=== PATIENT | female | born 1995 | race Caucasian/White ===

== ENCOUNTER 2020-01-11 10:38 | Inpatient (IN) ==
[2020-01-11] MEDS ORDERED: OXYTOCIN/DEXTROSE 5%-WATER 30 UNITS/500 ML BAG IV ONE (12:04)
[2020-01-11] MEDS ORDERED: ONDANSETRON 4 MG TAB.RAPDIS PO PRN (12:04)
[2020-01-11] MEDS: RINGER'S SOLUTION,LACTATED 1,000 ML IV ONE (12:56)
[2020-01-11] MEDS: valACYclovir HCL 500 MG TABLET PO SCH (13:00)
--- NOTE | 2020-01-11 14:48 | HP ---
Chief Complaint - Chief Complaint Date of Service: 01/11/20 Time of Service: 14:43 Chief Complaint: IOL for GHTN History of Present Illness: 24 yo at 39 weeks presents to L&D for induction of labor due to gestational hypertension. Pt denies WELLER, visual changes, or epigastric pain. Admits to increased edema. She also has a cold sore on her left upper lip for the past week or so. She states she only gets one every 1-2 years or so. D enies genital lesions. This complicated by asthma, anemia, sickle cell carrier (FOB negative), and GHTN. Rh positive Rubella immune GBS negative Medical History (Last Reviewed 01/11/20 @ 10:23 by Rochelle Garrison RN) Anemia Onset Date: 10/11/19 Sickle cell trait Onset Date: Unknown Asthma Onset Date: Unknown Surgical History: Surgical History (Last Reviewed 01/11/20 @ 10:23 by Rochelle Garrison RN) History of tonsillectomy Onset Date: ~2009 History of wisdom tooth extraction Onset Date: Unknown Family History: Family History (Last Reviewed 01/11/20 @ 10:23 by Rochelle Garrison RN) Father Diabetes Grandmother Heart disease Grandfather Myocardial infarction Social History: (Last Reviewed 01/11/20 @ 10:23 by Rochelle Garrison RN) Social History: adopted: No Marital status: Single lives independently: No household members: family number of children: 0 current occupational status: employed current occupation: [employer] Highest education level completed: high school graduate Sexually Active: Yes Service: No Tobacco: Smoking Status: Never smoker Alcohol: alcohol intake: former details: stopped with Substance Use: substance use type: does not use Dietary Habits: caffeine: Yes caffeine comment: 1 daily Type: coffee Allergies/Adverse Reactions: Allergies Allergy/AdvReac Type Severity Reaction Status Date / Time Penicillins Allergy Mild Verified 01/11/20 12:10 Home Medications: HOME MEDICATIONS prenat.vits,lalita,vcy-pycc-fztcu 1 tab PO DAILY 06/08/19 [Last Taken 01/01/20 07:00] ferrous sulfate 325 mg (65 mg iron) tablet 325 mg PO DAILY #30 tab 10/11/19 [Last Taken 01/01/20 07:00] Vits96/Iron Fum/Folic [ S] 1 tab PO DAILY 01/11/20 [Last Taken Unknown] loratadine 10 mg tablet 10 mg PO DAILY PRN 01/11/20 [Last Taken Unknown] Exam - Exam Vital Signs: Vital Signs - Last Taken Temp 36.4 C 01/11/20 12:30 Pulse 68 01/11/20 12:30 Resp 18 01/11/20 12:30 BP 130/77 01/11/20 12:30 Pulse Ox 95 01/11/20 12:30 Constitutional: Present: Alert, Oriented x3, Cooperative, No distress ENT Exam: Present: hearing grossly normal, other - Left upper lip with crusted cold sore on lateral edge. Neck: Present: non-tender. Absent: lymphadenopathy (R), lymphadenopathy (L), thyromegaly Breasts: Present: Exam deferred Respiratory: Present: lungs clear, no respiratory distress Cardiovascular/Chest: Present: normal peripheral pulses, regular rate, rhythm, edema - 1-2+ Abdomen: Present: soft, nontender, no rebound tenderness, other - gravid /Rectal: Present: Other - cervix 1/80/-1 Extremity: Present: non-tender, no calf tenderness, lower extremity edema Skin Exam: Present: normal color, warm/dry Lymphatic: Present: no adenopathy Neurologic: Present: alert, normal mood/affect, oriented x 3, other - bilateral patella DTR 2/4 Appearance: Present: appropriate appearance, appropriate insight Eye contact: Present: cooperative, good eye contact Thoughts: Present: normal thought pattern, normal mood /affect Diagnostic Studies: CBC, CMP, and Pr/Cr ratio with no signs of preeclampsia/HELLP. Assessment/Plan - Assessment/Plan (1) Gestational hypertension Assessment: Admit for induction of labor. Monitor closely for preeclampsia. Problem: Acute Qualifiers: Trimester: third trimester Qualified Code(s): O13.3 - Gestational [-induced] hypertension without significant proteinuria, third trimester (2) Asthma Assessment: monitor for developing s/s. Problem: Acute Qualifiers: Asthma severity: mild Asthma persistence: intermittent Asthma complication type: uncomplicated Qualified Code(s): J45.20 - Mild intermittent asthma, uncomplicated (3) Anemia Assessment: Continue Fe supplementation. 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 Add Valtrex 1g PO BID x2d to decrease viral load and avoid kissing baby. Concerned that if we place tegaderm over lesion it may pull off scab and increase risks of transmission. Problem: Acute Non Stress Test - Status NST: 01/11/20 Reason for NST: gestational hypertension Monitor Mode: External Acceleration: Present Decelerations: None Variability: Moderate 6-25 bpm Activity: reactive Reactive: 15 by 15 - Assessment NST Assessment: gestational hypertension - Plan NST Plan: Admit to L&D
[2020-01-11 14:56] LABS: Cocaine Ur Negative (NEGATIVE); Urine Barbiturate Negative (NEGATIVE); Urine Benzodiazepines Negative (NEGATIVE); Urine Opiates Negative (NEGATIVE); Urine PCP Negative (NEGATIVE); Urine THC Negative (NEGATIVE)
--- NOTE | 2020-01-11 17:31 | PN ---
Progess Note - Interim Date: 01/11/20 Time: 17:29 Narrative: 01/11/20 17:29 Patient rating contractions as mild Vital signs stable, blood pressures within normal range. Pitocin at 12 mu/min. FHT: 130 baseline, reassuring contractions q 3-4 min Cervix: 1/80/-1, AROM-clear Impression: Intrauterine at 39 weeks induction of labor for gestational hypertension Plan: Continue present plan
[2020-01-12] MEDS: valACYclovir HCL 500 MG TABLET PO SCH ×2 (00:57→23:03)
[2020-01-12] MEDS ORDERED: BUTORPHANOL TARTRATE 2 MG/ML VIAL IV PRN (01:04)
[2020-01-12] MEDS: DEXTROSE 5%-LACTATED RINGERS 1,000 ML IV PRN ×2 (03:20→15:35)
[2020-01-12] MEDS ORDERED: LIDOCAINE HCL 50 ML VIAL IJ PRN (04:34)
[2020-01-12] MEDS ORDERED: BUPIVACAINE HCL/0.9 % NACL/PF 250 ML EP PRN (06:36)
[2020-01-12] MEDS ORDERED: ONDANSETRON HCL/PF 2 MG/ML VIAL IV PRN (06:36)
[2020-01-12] MEDS ORDERED: NALOXONE HCL 1 MG/1 ML SYRG IV PRN (06:36)
[2020-01-12] MEDS: RINGER'S SOLUTION,LACTATED 1,000 ML IV ONE (06:43)
[2020-01-12] MEDS ORDERED: fentaNYL CITRATE/PF 50 MCG/ML AMPUL IT SCH (06:45)
--- NOTE | 2020-01-12 07:01 | ANES ---
Anesthesia Pre Procedure Eval Vitals/Labs: Last Vital Signs Temp 36.4 C 01/11/20 12:30 Pulse 68 01/11/20 12:30 Resp 18 01/11/20 12:30 BP 130/77 01/11/20 12:30 Pulse Ox 95 01/11/20 12:30 HOME MEDICATIONS prenat.vits,lalita,zdf-roye-dixmk 1 tab PO DAILY 06/08/19 [Last Taken 01/01/20 07:00] ferrous sulfate 325 mg (65 mg iron) tablet 325 mg PO DAILY #30 tab 10/11/19 [Last Taken 01/01/20 07:00] Vits96/Iron Fum/Folic [ S] 1 tab PO DAILY 01/11/20 [Last Taken Unknown] loratadine 10 mg tablet 10 mg PO DAILY PRN 01/11/20 [Last Taken Unknown] Allergies/Adverse Reactions: Allergies Allergy/AdvReac Type Severity Reaction Status Date / Time Penicillins Allergy Mild Verified 01/11/20 12:10 - Planned Procedure Planned Procedure: INDUCTION Medication List Reviewed:: Yes Allergies Verified: Yes Medical History (Last Reviewed 01/12/20 @ 06:59 by Brandin Gutiérrez CRNA) Anemia Onset Date: 10/11/19 Sickle cell trait Onset Date: Unknown Asthma Onset Date: Unknown Surgical History (Last Reviewed 01/12/20 @ 06:59 by Brandin Gutiérrez CRNA) History of tonsillectomy Onset Date: ~2009 History of wisdom tooth extraction Onset Date: Unknown Family History (Last Reviewed 01/12/20 @ 06:59 by Brandin Gutiérrez CRNA) Father Diabetes Grandmother Heart disease Grandfather Myocardial infarction - Airway/Neck/Teeth Within Normal Limits:: Yes Neck Exam: full range of motion Mallampatti Score: 2 Thyromental (T-M) distance: > 6 cm Mandibulo Hyoid distance: > 3 cm - Respiratory Respiratory History: asthma Smoking Status: Never smoker Sleep Apnea currently treated: No Sleep Apnea by current assessment: No - Cardiovascular Tolerate Activity: Fair Heart Sounds: S1 & S2, Regular - Anesthesia Assessment and Plan ASA Class: PS, II, E Anesthesia Type Plan: Epidural - CSE for labor analgesia
--- NOTE | 2020-01-12 07:27 | ANES ---
Post Anesthesia Discharge - Transfer of Care Transfer of Care handoff given to nurse: Yes - Discharge from PACU Discharge from PACU when meets criteria: Yes - Comfortable post CSE.
--- NOTE | 2020-01-12 07:28 | ANES ---
Anesthesia Procedure Note Procedure Note: ANESTHESIA PROCEDURE NOTE Date of Procedure: [01/12/2020 Time of procedure: 7 AM. Performed by: KERMIT Mckenna CRNA, MSN Lead Inspector: Laura Jonas RN. Preprocedure diagnosis: Active labor, labor pain. Post procedure diagnosis: Same. Procedure:Epidural for labor analgesia L3-4. Indications: Labor pain. Findings: See below. Details of the procedure: The patient was placed on the side of the bed in sitting positionand prepped with DuraPrep then draped in a sterile fashion. Lidocaine 1% was infiltrated to the skin and subcutaneous tissues at the level of the L3-4 interspace. An 18-gauge Touhy needle was used to approach the epidural space with loss of resistance technique. Once loss of resistance was achieved a 27-gauge spinal needle was passed through the epidural needle and CSF was contacted. After CSF returned, 20 mcg of fentanyl was injected in the spinal needle was removed the epidural catheter was then threaded approximately 4 cm in the epidural needle was removed. The catheter was taped in place and after careful aspiration 3 mL of 1.5% lidocaine with 1-200,000 epinephrine was injected without change in maternal heart rate or sensorium. . EBL: Minimal. Fluids: N/A. Specimen: N/A. Post procedure condition: The patient tolerated the procedure well with good relief. No complications were noted. Thank you for this consultation. Brandin Gutiérrez CRNA, ARNP, MSN
--- NOTE | 2020-01-12 12:12 | ANES ---
Post Anesthesia Assessment - Vital Signs Vitals: Last Vital Signs Temp 36.4 C 01/11/20 12:30 Pulse 68 01/11/20 12:30 Resp 18 01/11/20 12:30 BP 130/77 01/11/20 12:30 Pulse Ox 95 01/11/20 12:30 Airway Patency: Normal - Mental Status Level Of Consciousness: Awake, Alert, Appropriate - Pain Level Pain Score: 0 - N/V Assessment Nausea/Vomiting Presence: None Dehydration:: No
[2020-01-12] MEDS ORDERED: OXYTOCIN/DEXTROSE 5%-WATER 30 UNITS/500 ML BAG IV ONE (16:18)
[2020-01-12] MEDS ORDERED: BENZOCAINE/MENTHOL 81 SPRAY CAN TP PRN (16:18)
[2020-01-12] MEDS ORDERED: HYDROcodone/ACETAMINOPHEN 1 EACH TABLET PO PRN (16:18)
[2020-01-12] MEDS ORDERED: ACETAMINOPHEN 325 MG TABLET PO PRN (16:18)
[2020-01-12] MEDS ORDERED: GLYCERIN/WITCH HAZEL LEAF 40 APPL BOX TP PRN (16:18)
[2020-01-12] MEDS ORDERED: BISACODYL 10 MG SUPP.RECT RC PRN (16:18)
[2020-01-12] MEDS ORDERED: SENNOSIDES 8.6 MG TABLET PO PRN (16:18)
[2020-01-12] MEDS ORDERED: HYDROCORTISONE 30 APPL TUBE TP PRN (16:18)
[2020-01-12] MEDS ORDERED: LORATADINE 10 MG TABLET PO PRN (16:19)
--- NOTE | 2020-01-12 16:21 | OR ---
Operative Report - Dictated Report Narrative: Spontaneous vaginal delivery of viable male at 1557 on 01/12/2020 with Apgars 8 and 9, weighing 3209 g in ROSIBEL position with right hand at chin. Cord clamping delayed 30 seconds Placenta delivered complete, intact, with three vessel cord Estimated blood loss: 100 mL Anesthesia: Epidural Lacerations: Bilateral periurethral abrasions with no repair none necessary. History for MU History for Definition: * The number of deliveries resulting in a live the patient experienced prior to current hospitalization * The previous delivery of live twins or any live multiple gestation is considered one live event. *If primagravida or nulliparous is documented select zero for the number of previous live births. Live Events: Live Events: 0
[2020-01-12] MEDS: DOCUSATE SODIUM 100 MG CAPSULE PO SCH (22:25)
[2020-01-13] MEDS: IBUPROFEN 800 MG TABLET PO PRN ×2 (01:01→19:23)
[2020-01-13] MEDS: FERROUS SULFATE 325 MG TABLET PO SCH (08:59)
[2020-01-13] MEDS: PRENATAL VITS96/IRON FUM/FOLIC 1 TAB TABLET PO SCH (08:59)
[2020-01-13] MEDS: DOCUSATE SODIUM 100 MG CAPSULE PO SCH ×2 (08:59→21:26)
--- NOTE | 2020-01-13 12:57 | PN ---
Subjective - Date and Time Seen Date: 01/13/20 Time: 12:56 Objective - Vitals Vitals: Last Vital Signs Temp 36.1 C 01/13/20 06:50 Pulse 60 01/13/20 06:50 Resp 18 01/13/20 06:50 BP 121/71 01/13/20 06:50 Pulse Ox 98 01/13/20 06:50 Patient denies complaints. Breast-feeding Lochia wnl abdomen - soft, nontender Uterus -firm, at umbilicus - 1 no calf tenderness Impression: day #1 - s/p spontaneous vaginal delivery. Gestational hypertension-resolved Plan: Continue routine care. Continue to monitor for signs or symptoms of preeclampsia. Assessment/Plan - Problems/Diagnosis (1) Gestational hypertension Problem: Acute Qualifiers: Trimester: third trimester Qualified Code(s): O13.3 - Gestational [-induced] hypertension without significant proteinuria, third trimester (2) Asthma Problem: Acute Qualifiers: Asthma severity: mild Asthma persistence: intermittent Asthma complication type: uncomplicated Qualified Code(s): J45.20 - Mild intermittent asthma, uncomplicated (3) Anemia Problem: Acute Qualifiers: Anemia type: iron deficiency Iron deficiency anemia type: inadequate dietary iron intake Qualified Code(s): D50.8 - Other iron deficiency anemias (4) 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
--- NOTE | 2020-01-14 08:44 | PN ---
Subjective - Date and Time Seen Date: 01/14/20 Time: 08:41 Objective - Vitals Vitals: Last Vital Signs Temp 36.7 C 01/13/20 19:25 Pulse 79 01/13/20 19:25 Resp 16 01/13/20 19:25 BP 124/56 01/13/20 19:25 Pulse Ox 98 01/13/20 19:25 Patient denies complaints. Breast-feeding well. Lochia wnl abdomen - soft, nontender Uterus -firm, at umbilicus - 2 no calf tenderness, pedal edema resolving Impression: day #2 - s/p spontaneous vaginal delivery. Gestational hypertension-resolved. Asthma-stable. Plan: Routine discharge instructions with preeclampsia precautions. Blood pressure check in 1 week. Routine visit in 3 to 4 weeks. Assessment/Plan - Problems/Diagnosis (1) Gestational hypertension Problem: Acute Qualifiers: Trimester: third trimester Qualified Code(s): O13.3 - Gestational [-induced] hypertension without significant proteinuria, third trimester (2) Asthma Problem: Acute Qualifiers: Asthma severity: mild Asthma persistence: intermittent Asthma complication type: uncomplicated Qualified Code(s): J45.20 - Mild intermittent asthma, uncomplicated (3) Anemia Problem: Acute Qualifiers: Anemia type: iron deficiency Iron deficiency anemia type: inadequate dietary iron intake Qualified Code(s): D50.8 - Other iron deficiency anemias (4) 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
[2020-01-14 09:34] VITALS: BP 128/88
[2020-01-14] MEDS: DOCUSATE SODIUM 100 MG CAPSULE PO SCH (09:57)
[2020-01-14] MEDS: PRENATAL VITS96/IRON FUM/FOLIC 1 TAB TABLET PO SCH (09:57)
[2020-01-14] MEDS: FERROUS SULFATE 325 MG TABLET PO SCH (09:57)
== END 2020-01-14 14:15 | disposition home or self-care (01) | DRG 807 ==
LOC: OB 10:38
PROVIDERS: ADMIT Obstetrics & Gynecology; ATTEND Obstetrics & Gynecology
CPT/HCPCS: 59025; 80053; 80307; 82570; 84155; 84156; 85025; 88307; 88888